=== PATIENT | female | born 1960 | race African-American/Black ===

== ENCOUNTER 2016-12-10 21:30 | Emergency (ER) | payer MEDICAID ==
[~2016-12-10] VITALS: Ht 160 cm; Wt 110.0 kg
[~2016-12-10 21:30] MED LIST: ALBU0.08 NEB; ATOR40TA16 PO; CHLOR50 PO; METO25TA3 PO; NEBUMIS6 XX; PHEN1TAB6 PO; PHEN200C3 PO; PHEN300C3 PO; VENTAER INH
[2016-12-10 21:37] VITALS: BP 129/71; PULSE 68; RESP 16; TEMP 98.2; O2SAT 98
[2016-12-10] MEDS ORDERED: HYDR200T3 PO (21:40)
[2016-12-10] MEDS ORDERED: PRED2.5T PO (21:40)
--- NOTE | 2016-12-10 21:47 | PD ---
HPI Chief Complaint: Seizure Time Seen by Provider: 21:47 Travel History International Travel<30 days: No Contact w/Intl Traveler<30days: No Traveled to known affect area: No History of Present Illness HPI Patient comes in for evaluation after having a "small seizure". Patient reports that patient was dying her hair in the bathroom when he noticed her starting to have a seizure, so he walked her to the bed where she then proceeded to seem to "go out" and start shaking. reports that he used cold rags to apply to his 's face seemed to improve her symptoms after about 5 minutes. Reports she came back to her normal state approximately 2 minutes. denies patient falling or hitting her head. Patient reports she remembers the entire seizure. Denies any pain anywhere. Denies any chest pain, shortness of breath, abdominal pain, fevers, loss or change in bowel or bladder. Patient reports she's taking her seizure medication as prescribed and has not missed any doses. Patient reports last seizure was approximately 3 months ago. PFSH Past Medical History Arthritis: Yes Asthma: Yes Heart Rhythm Problems: No Cancer: No Cardiac Catheterization: No Cardiovascular Problems: Yes (HTN) High Cholesterol: Yes Congestive Heart Failure: No Diabetes: No Diminished Hearing: No Glaucoma: No Hepatitis: No Hiatal Hernia: No Hypertension: Yes Medical other: Yes (EPILEPSY SINCE CHILDHOOD - LAST SEIZURE 2 YEARS AGO) Respiratory: Yes (BRONCHITIS) Immunizations Current: Yes Myocardial Infarction: No Seizures: Yes Thyroid Disease: Yes Tetanus Vaccination: < 5 Years Influenza Vaccination: Yes ?: Not Menopausal: Yes : 3 Para: 2 : 1 Tubal Ligation: Yes Past Surgical History Abdominal Surgery: No Cardiac Surgery: No Coronary Artery Bypass Graft: No Ear Surgery: No Endocrine Surgery: No Eye Surgery: No Genitourinary Surgery: No Gynecologic Surgery: Yes (BILATERAL TUBAL LIGATION) Hysterectomy: Yes (PARTIAL) Oral Surgery: Yes (WISDOM TEETH EXTRACTION) Pacemaker: No Thoracic Surgery: No Other Surgery: Yes (CYST UNDER CHIN LANCED) Social History Alcohol Use: No Tobacco Use: No (never) Substance Use: No Allergies-Medications (Allergen,Severity, Reaction): Coded Allergies: ABDON Inhibitors (Verified Allergy, Intermediate, 12/10/16) Sulfa (Verified Allergy, Intermediate, Nausea/Vomiting, 12/10/16) Aspirin (Verified Adverse Reaction, Intermediate, INDIGESTION, 12/10/16) Codeine (Verified Adverse Reaction, Intermediate, INDIGESTION, 12/10/16) Reported Meds & Prescriptions Reported Meds & Active Scripts Active Phenytoin Extended 200 Mg Cap 400 Mg PO DAILY Take 300mg on odd days and 400mg on even days Phenytoin Extended 300 Mg Cap 300 Mg PO DAILY Take 300mg on odd days and 400mg on even days Phenobarbital 100 Mg Tab 100 Mg PO TID Ventolin Hfa 18 GM Inh (Albuterol Sulfate) 90 Mcg/Act Aer 2 Puff INH Q4-6H PRN Albuterol Neb (Albuterol Sulfate) 2.5 Mg/3 Ml Neb 2.5 Mg NEB Q4HR NEB While awake Metoprolol Tartrate 25 Mg Tab 25 Mg PO BID Atorvastatin (Atorvastatin Calcium) 40 Mg Tab 40 Mg PO HS Chlorthalidone 50 Mg Tab 50 Mg PO DAILY Reported Hydroxychloroquine (Hydroxychloroquine Sulfate) 200 Mg Tab 200 Mg PO BID Takw with food Prednisone 2.5 Mg Tab 2.5 Mg PO DAILY Review of Systems Except as stated in HPI: all other systems reviewed are Neg Physical Exam Narrative GENERAL: Well-developed, overly nourished, in no acute distress, and non-ill appearing. SKIN: Warm and dry. HEAD: Atraumatic. Normocephalic. EYES: Pupils equal and round. EOMI. No scleral icterus. No injection or drainage. ENT: No nasal bleeding or discharge. Mucous membranes pink and moist. NECK: Trachea midline. No JVD. Supple. No nuclear rigidity. CARDIOVASCULAR: Regular rate and rhythm. No murmur appreciated. RESPIRATORY: No accessory muscle use. No respiratory distress. Clear to auscultation. Breath sounds equal bilaterally. GASTROINTESTINAL: Abdomen soft, non-tender, nondistended. Hepatic and splenic margins not palpable. No pulsatile mass. MUSCULOSKELETAL: No obvious deformities. No clubbing. No cyanosis. No edema. Full range of motion. NEUROLOGICAL: Awake and alert. No obvious cranial nerve deficits. Motor grossly within normal limits. Normal speech. PSYCHIATRIC: Appropriate mood and affect; insight and judgment normal. Data Data Last Documented VS Vital Signs Date Time Temp Pulse Resp B/P Pulse Ox O2 Delivery O2 Flow Rate FiO2 12/10/16 23:12 170/80 100 12/10/16 23:06 60 20 Room Air 12/10/16 21:37 98.2 Orders Complete Blood Count With Diff (12/10/16 21:46) Basic Metabolic Panel (Bmp) (12/10/16 21:46) Phenytoin (Dilantin) (12/10/16 21:46) Blood Glucose (12/10/16 21:46) Ecg Monitoring (12/10/16 21:46) Iv Access Insert/Monitor (12/10/16 21:46) Oximetry (12/10/16 21:46) Sodium Chloride 0.9% Flush (Ns Flush) (12/10/16 22:00) Phenytoin (Dilantin) (12/10/16 23:00) Labs Laboratory Tests Test 12/10/16 22:00 White Blood Count 6.8 TH/MM3 Red Blood Count 3.81 MIL/MM3 Hemoglobin 10.7 GM/DL Hematocrit 31.9 % Mean Corpuscular Volume 83.7 FL Mean Corpuscular Hemoglobin 28.0 PG Mean Corpuscular Hemoglobin 33.5 % Concent Red Cell Distribution Width 14.8 % Platelet Count 192 TH/MM3 Mean Platelet Volume 8.5 FL Neutrophils (%) (Auto) 55.5 % Lymphocytes (%) (Auto) 34.7 % Monocytes (%) (Auto) 7.5 % Eosinophils (%) (Auto) 1.8 % Basophils (%) (Auto) 0.5 % Neutrophils # (Auto) 3.8 TH/MM3 Lymphocytes # (Auto) 2.4 TH/MM3 Monocytes # (Auto) 0.5 TH/MM3 Eosinophils # (Auto) 0.1 TH/MM3 Basophils # (Auto) 0.0 TH/MM3 CBC Comment DIFF FINAL Differential Comment Sodium Level 139 MEQ/L Potassium Level 3.6 MEQ/L Chloride Level 104 MEQ/L Carbon Dioxide Level 29.6 MEQ/L Anion Gap 5 MEQ/L Blood Urea Nitrogen 12 MG/DL Creatinine 0.74 MG/DL Estimat Glomerular Filtration 99 ML/MIN Rate Random Glucose 81 MG/DL Calcium Level 8.5 MG/DL Phenytoin (Dilantin) Level 7.7 MCG/ML [facility] Medical Decision Making Medical Screen Exam Complete: Yes Emergency Medical Condition: Yes Differential Diagnosis Electrolyte abnormality, breakthrough seizure, subtherapeutic Dilantin, other Narrative Course The patient presented with seizure. The patient has a known seizure disorder. The patient looks great and has returned to baseline. There is no evidence clinically to suggest meningitis, infection or metabolic etiology. The patient appears well hydrated and nontoxic. Clinical suspicion was discussed with patient. Patient was informed to continue taking seizure medication as prescribed and not miss or skip doses. They were instructed to return as needed or if recurred prior to follow up with neurology. Patient agreed with plan and instructions. The patient was also informed that they may not drive or operated heavy machinery due to the fact that they may have a seizure and cause injury or to themselves or others. They may not drive or operate heavy machinery until cleared by a neurologist. Patient in no obvious distress upon re-evaluation. All pertinent laboratory result(s) discussed with patient/family. Patient was asked if they wanted to speak to my attending, which the patient did not wish to do at this time. Discussed patient with Dr. Sprague, who is in agreement with plan of care and disposition. Any questions/concerns in reference to patient diagnosis/ condition discussed and clarified prior to patient's discharge. Reinforced sheer importance of close follow up with patient's primary physician or primary care clinic. Instructed patient to return to ED immediately, if symptoms return/ worsen. Pt showed understanding of above instructions. Further instructions and recommendations were detailed in discharge paperwork. Pt ambulated without difficulty out of ED at discharge. Diagnosis Primary Impression: Subtherapeutic phenytoin level Additional Impression: Breakthrough seizure Patient Instructions: General Instructions, Recurrent Seizures in Adults (DC) Additional Instructions: Follow-up with your primary care physician and/or neurologist this week. Do not drive any vehicle or operate heavy machinery until cleared by your neurologist. Return to the emergency department if symptoms get worse. Disposition: 01 DISCHARGE HOME Condition: Stable Mack Britton Dec 10, 2016 21:47
[2016-12-10] MEDS ORDERED: SODIUM CHLORIDE 0.9% FLUSH 5 ML FLUSH IVF PRN (22:00)
[2016-12-10 22:21] LABS: AUTOMATED NEUTROPHIL # 3.8 TH/MM3 (1.8-7.7); BASOPHIL % 0.5 % (0.0-2.0); EOSINOPHIL # 0.1 TH/MM3 (0-0.4); EOSINOPHIL % 1.8 % (0.0-4.0); HEMATOCRIT 31.9 % (35.0-46.0); HEMO FLAGS DIFF FINAL; LYMPH % 34.7 % (9.0-44.0); LYMPHOCYTE # 2.4 TH/MM3 (1.0-4.8); MEAN CELL VOLUME 83.7 FL (80.0-100.0); MEAN CORPUSCULAR HGB CONC 33.5 % (32.0-36.0); MONO % 7.5 % (0.0-8.0); NEUT % 55.5 % (16.0-70.0); PLATELET COUNT 192 TH/MM3 (150-450); RED BLOOD COUNT 3.81 MIL/MM3 (4.00-5.30); RED CELL DISTRIBUTION WIDTH 14.8 % (11.6-17.2); WHITE BLOOD COUNT 6.8 TH/MM3 (4.0-11.0)
[2016-12-10 22:58] LABS: BICARBONATE 29.6 MEQ/L (21.0-32.0); POTASSIUM 3.6 MEQ/L (3.5-5.1)
[2016-12-10] MEDS ORDERED: PHENYTOIN SODIUM 100 MG CAP PO ONE (23:00)
[2016-12-10 23:06] VITALS: BP 170/80; PULSE 60; RESP 20; O2SAT 100
[2016-12-10 23:12] VITALS: BP 170/80
[2016-12-25] MEDS ORDERED: ATOR1TAB18 PO (09:59)
[2016-12-25] MEDS ORDERED: CHOL20005 PO (09:59)
[2017-04-28] MEDS ORDERED: OMEP40CA2 PO (11:13)
[2017-04-28] MEDS ORDERED: CHOL5000 PO (11:14)
[2017-04-28] MEDS ORDERED: KLOR25TA2 PO (11:20)
== END 2016-12-10 23:21 | disposition home or self-care (01) ==
LOC: NEPC 21:30
DX: G40.909 Epilepsy, unspecified, not intractable, without status epilepticus (principal); G40.89 Other seizures; E78.00 Pure hypercholesterolemia, unspecified; I10 Essential (primary) hypertension; E07.9 Disorder of thyroid, unspecified; Z79.899 Other long term (current) drug therapy; Z87.09 Personal history of other diseases of the respiratory system; Z86.69 Personal history of other diseases of the nervous system and sense organs; Z87.39 Personal history of other diseases of the musculoskeletal system and connective tissue
CPT/HCPCS: 80048; 80185; 85025; 99284

== ENCOUNTER 2017-01-19 07:40 | Emergency (ER) | payer MEDICAID ==
[~2017-01-19] VITALS: Ht 162.6 cm; Wt 110.0 kg
[~2017-01-19 07:40] MED LIST changes: +ATOR1TAB18 PO; -ATOR40TA16 PO; +CHOL20005 PO; +HYDR200T3 PO; -NEBUMIS6 XX; +PRED2.5T PO
[2017-01-19 07:42] VITALS: BP 169/89; PULSE 58; RESP 17; TEMP 97.8; O2SAT 100
[2017-01-19] MEDS ORDERED: PHEN1TAB6 PO (07:57)
[2017-01-19] MEDS ORDERED: POTA10CA PO (07:58)
--- NOTE | 2017-01-19 08:13 | PD ---
HPI Chief Complaint: ENT Complaint Time Seen by Provider: 08:07 Travel History International Travel<30 days: No Contact w/Intl Traveler<30days: No Traveled to known affect area: No History of Present Illness HPI 56-year-old Afro-[place] female presents the emergency department with ongoing swelling in her posterior pharynx, and swelling and tenderness of the uvula. Patient is being followed by an ear nose and throat doctor, and has been evaluated for sleep apnea. Patient states she does not have sleep apnea according to the chest that they did. Patient denies any recent exposures. Patient is known to snore quite a lot according to her . She denies heartburn but does wake up with pain and burning in the throat in the morning. Patient denies fever, chills, or other symptoms. She does state nasal congestion and occasional headache. She denies seasonal allergies this time of year. Patient is allergic to abdon inhibitors, aspirin, codeine, sulfa. PFSH Past Medical History Arthritis: Yes Asthma: Yes Heart Rhythm Problems: No Cancer: No Cardiac Catheterization: No Cardiovascular Problems: Yes (HTN) High Cholesterol: Yes Congestive Heart Failure: No Diabetes: No Diminished Hearing: No Glaucoma: No Hepatitis: No Hiatal Hernia: No Hypertension: Yes Respiratory: Yes (BRONCHITIS) Immunizations Current: Yes Myocardial Infarction: No Seizures: Yes Thyroid Disease: Yes ?: Not Menopausal: Yes : 3 Para: 2 : 1 Tubal Ligation: Yes Past Surgical History Abdominal Surgery: No Cardiac Surgery: No Coronary Artery Bypass Graft: No Ear Surgery: No Endocrine Surgery: No Eye Surgery: No Genitourinary Surgery: No Gynecologic Surgery: Yes (BILATERAL TUBAL LIGATION) Hysterectomy: Yes (PARTIAL) Oral Surgery: Yes (WISDOM TEETH EXTRACTION) Pacemaker: No Thoracic Surgery: No Other Surgery: Yes (CYST UNDER CHIN LANCED) Social History Alcohol Use: No Tobacco Use: No (never) Substance Use: No Allergies-Medications (Allergen,Severity, Reaction): Coded Allergies: ABDON Inhibitors (Verified Allergy, Intermediate, 01/19/17) Sulfa (Verified Allergy, Intermediate, Nausea/Vomiting, 01/19/17) Aspirin (Verified Adverse Reaction, Intermediate, INDIGESTION, 01/19/17) Codeine (Verified Adverse Reaction, Intermediate, INDIGESTION, 01/19/17) Reported Meds & Prescriptions Reported Meds & Active Scripts Active Atorvastatin (Atorvastatin Calcium) 80 Mg Tab 80 Mg PO HS Phenytoin Extended 300 Mg Cap 300 Mg PO DAILY Take 300mg on odd days and 400mg on even days Ventolin Hfa 18 GM Inh (Albuterol Sulfate) 90 Mcg/Act Aer 2 Puff INH Q4-6H PRN Albuterol Neb (Albuterol Sulfate) 2.5 Mg/3 Ml Neb 2.5 Mg NEB Q4HR NEB While awake Metoprolol Tartrate 25 Mg Tab 25 Mg PO BID Reported Potassium Chloride ER (Potassium Chloride) 10 Meq Cap 10 Meq PO DAILY Phenobarbital 100 Mg Tab 100 Mg PO TID Hydroxychloroquine (Hydroxychloroquine Sulfate) 200 Mg Tab 200 Mg PO BID Takw with food Prednisone 2.5 Mg Tab 2.5 Mg PO DAILY Review of Systems Except as stated in HPI: all other systems reviewed are Neg General / Constitutional: No: Fever Eyes: No: Visual changes HENT: Positive: Sore Throat, Congestion, No: Headaches, Rhinitis, Rhinorrhea, Neck Stiffness, Neck Pain, Ear Discharge, Earache Cardiovascular: No: Chest Pain or Discomfort Respiratory: No: Shortness of Breath Gastrointestinal: No: Abdominal Pain Genitourinary: No: Dysuria Musculoskeletal: No: Pain Skin: No Rash Neurologic: No: Weakness Psychiatric: No: Depression Endocrine: No: Polydipsia Hematologic/Lymphatic: No: Easy Bruising Physical Exam Narrative GENERAL: Obese patient in no acute distress. Patient is speaking full sentences. SKIN: Warm and dry. HEAD: Atraumatic. Normocephalic. EYES: Pupils equal and round. No scleral icterus. No injection or drainage. ENT: No nasal bleeding or discharge. Mucous membranes pink and moist. Patient has a very narrow pharynx, and the uvula appears slightly swollen and injected, but no other significant findings are noted. TMs are clear bilaterally. No sinus tenderness with palpation. NECK: Trachea midline. No JVD. Supple and nontender. CARDIOVASCULAR: Regular rate and rhythm. RESPIRATORY: No accessory muscle use. Clear to auscultation. Breath sounds equal bilaterally. GASTROINTESTINAL: Abdomen soft, non-tender, nondistended. Hepatic and splenic margins not palpable. MUSCULOSKELETAL: Extremities without clubbing, cyanosis, or edema. No obvious deformities. NEUROLOGICAL: Awake and alert. No obvious cranial nerve deficits. Motor grossly within normal limits. Five out of 5 muscle strength in the arms and legs. Normal speech. PSYCHIATRIC: Appropriate mood and affect; insight and judgment normal. Data Data Last Documented VS Vital Signs Date Time Temp Pulse Resp B/P Pulse Ox O2 Delivery O2 Flow Rate FiO2 01/19/17 07:42 97.8 58 17 169/89 100 MDM Medical Decision Making Medical Screen Exam Complete: Yes Emergency Medical Condition: Yes Differential Diagnosis Inflamed uvula. Silent reflux. Sinus congestion. Postnasal drip. Narrative Course Patient is medically stable at time of exam. Patient will be given a course of amoxicillin 400 per 5 mL suspension 2 teaspoons twice a day 10 days. Patient started on Flonase nasal spray 2 sprays each nostril. Patient is given Orapred 15 per 5 mL suspension she is to take 2 teaspoons twice a day for 5 days. Patient started on omeprazole 40 mg daily #30. Recommend close follow with her in nose and throat physician. Patient may return to emergency Department with worsening symptoms as needed. Diagnosis Primary Impression: Pharyngitis, chronic Referrals: Ear / Nose / Throat Specialist Patient Instructions: General Instructions Additional Instructions: Patient will be given a course of amoxicillin 400 per 5 mL suspension 2 teaspoons twice a day 10 days. Patient started on Flonase nasal spray 2 sprays each nostril. Patient is given Orapred 15 per 5 mL suspension she is to take 2 teaspoons twice a day for 5 days. Patient started on omeprazole 40 mg daily #30. Recommend close follow with her in nose and throat physician. Patient may return to emergency Department with worsening symptoms as needed. Med/Other Pt SpecificInfo: Prescription(s) given Disposition: 01 DISCHARGE HOME Condition: Stable Peterson Virk Jan 19, 2017 08:13
[2017-01-19] MEDS ORDERED: FLUT1SPR5 EACH NARE (08:15)
[2017-01-19] MEDS ORDERED: PRED1TAB47 SL (08:15)
[2017-01-19] MEDS ORDERED: OMEP40CA2 PO (08:15)
[2017-01-19] MEDS ORDERED: AMOX400S3 PO (08:15)
[2017-04-28] MEDS ORDERED: OMEP40CA2 PO (11:13)
[2017-04-28] MEDS ORDERED: CHOL5000 PO (11:14)
[2017-04-28] MEDS ORDERED: KLOR25TA2 PO (11:20)
== END 2017-01-19 08:51 | disposition home or self-care (01) ==
LOC: NEPB 07:40
DX: J31.2 Chronic pharyngitis (principal); J45.909 Unspecified asthma, uncomplicated; I10 Essential (primary) hypertension; E78.00 Pure hypercholesterolemia, unspecified; E07.9 Disorder of thyroid, unspecified
CPT/HCPCS: 99282

== ENCOUNTER 2017-03-30 20:37 | Emergency (ER) | payer MEDICAID ==
[~2017-03-30] VITALS: Ht 132.1 cm; Wt 105.0 kg
[~2017-03-30 20:37] MED LIST changes: +AMOX400S3 PO; -CHLOR50 PO; -CHOL20005 PO; +FLUT1SPR5 EACH NARE; +OMEP40CA2 PO; -PHEN200C3 PO; +POTA10CA PO; +PRED1TAB47 SL
[2017-03-30 20:40] VITALS: BP 144/60; PULSE 63; RESP 16; TEMP 98.4; O2SAT 98
[2017-03-30 21:20] VITALS: BP 155/71; PULSE 59; RESP 14; O2SAT 97
--- NOTE | 2017-03-30 21:36 | PD ---
HPI Chief Complaint: Seizure Time Seen by Provider: 21:33 Travel History International Travel<30 days: No Contact w/Intl Traveler<30days: No Traveled to known affect area: No History of Present Illness HPI 56-year-old female that presents to the ED for evaluation of altered mental status is status post seizure. Per patient she has a history of seizures and she takes 2 medications for it. Per patient she is compliant with them. Per patient she's had seizures before. Per patient and her family was concerned because she had a seizure in front of them. She was sleeping and this woke her up from her sleep. She denies any other injuries. She has hit her head or losing consciousness. Per patient she does have some discomfort to her abdomen and feeling weak. Let him that she feels fine. She does have some chronic arthritic pain on her feet for which he takes medications. She is allergies to aspirin, codeine, sulfa, Cameron inhibitors. No other medical issues at this time. Denies any cuts. No urinary or bowel movement issues. PFSH Past Medical History Arthritis: Yes Asthma: Yes Heart Rhythm Problems: No Cancer: No Cardiac Catheterization: No Cardiovascular Problems: Yes (HTN) High Cholesterol: Yes Congestive Heart Failure: No Diabetes: No Diminished Hearing: No Glaucoma: No Hepatitis: No Hiatal Hernia: No Hypertension: Yes Medical other: Yes (EPILEPSY SINCE CHILDHOOD ) Respiratory: Yes (BRONCHITIS) Immunizations Current: Yes Myocardial Infarction: No Seizures: Yes Thyroid Disease: Yes Tetanus Vaccination: > 5 Years ?: Not Menopausal: Yes : 3 Para: 2 : 1 Tubal Ligation: Yes Past Surgical History Abdominal Surgery: No Cardiac Surgery: No Coronary Artery Bypass Graft: No Ear Surgery: No Endocrine Surgery: No Eye Surgery: No Genitourinary Surgery: No Gynecologic Surgery: Yes (BILATERAL TUBAL LIGATION) Hysterectomy: Yes (PARTIAL) Oral Surgery: Yes (WISDOM TEETH EXTRACTION) Pacemaker: No Thoracic Surgery: No Other Surgery: Yes (CYST UNDER CHIN LANCED) Social History Alcohol Use: No Tobacco Use: No (never) Substance Use: No Allergies-Medications (Allergen,Severity, Reaction): Coded Allergies: CAMERON Inhibitors (Verified Allergy, Intermediate, 03/30/17) Sulfa (Verified Allergy, Intermediate, Nausea/Vomiting, 03/30/17) Aspirin (Verified Adverse Reaction, Intermediate, INDIGESTION, 5/22/17) Codeine (Verified Adverse Reaction, Intermediate, INDIGESTION, 03/30/17) Reported Meds & Prescriptions Reported Meds & Active Scripts Active Omeprazole 40 Mg Cap 40 Mg PO DAILY Flonase Nasal [place] (Fluticasone Nasal [place]) 50 Mcg/Act [place] 50 Mcg EACH NARE BID Orapred Odt (Prednisolone Odt) 15 Mg Tab 15 Mg SL BID 5 Days Atorvastatin (Atorvastatin Calcium) 80 Mg Tab 80 Mg PO HS Phenytoin Extended 300 Mg Cap 300 Mg PO DAILY Take 300mg on odd days and 400mg on even days Ventolin Hfa 18 GM Inh (Albuterol Sulfate) 90 Mcg/Act Aer 2 Puff INH Q4-6H PRN Albuterol Neb (Albuterol Sulfate) 2.5 Mg/3 Ml Neb 2.5 Mg NEB Q4HR NEB While awake Metoprolol Tartrate 25 Mg Tab 25 Mg PO BID Reported Phenobarbital 100 Mg Tab 100 Mg PO TID Hydroxychloroquine (Hydroxychloroquine Sulfate) 200 Mg Tab 200 Mg PO BID Takw with food Prednisone 2.5 Mg Tab 2.5 Mg PO DAILY Review of Systems Except as stated in HPI: all other systems reviewed are Neg Physical Exam Narrative GENERAL: SKIN: Warm and dry. HEAD: Atraumatic. Normocephalic. EYES: Pupils equal and round. No scleral icterus. No injection or drainage. ENT: No nasal bleeding or discharge. Mucous membranes pink and moist. Tongue is midline. No uvula deviation. NECK: Trachea midline. No JVD. CARDIOVASCULAR: Regular rate and rhythm. No murmurs, S3, S4. RESPIRATORY: No accessory muscle use. Clear to auscultation. Breath sounds equal bilaterally. GASTROINTESTINAL: Abdomen soft, non-tender, nondistended. Hepatic and splenic margins not palpable. MUSCULOSKELETAL: Extremities without clubbing, cyanosis, or edema. No obvious deformities. Full range of motion of the upper and lower extremities bilaterally. 2+ pulses bilaterally. No lumbar, thoracic, cervical spine tenderness to palpation. NEUROLOGICAL: Awake and alert. No obvious cranial nerve deficits. Motor grossly within normal limits. Five out of 5 muscle strength in the arms and legs. Normal speech. PSYCHIATRIC: Appropriate mood and affect; insight and judgment normal. Data Data Last Documented VS Vital Signs Date Time Temp Pulse Resp B/P Pulse Ox O2 Delivery O2 Flow Rate FiO2 03/30/17 21:20 59 14 155/71 97 Room Air 03/30/17 20:40 98.4 Orders Pentobaribital (03/30/17 21:12) Phenytoin (Dilantin) (03/30/17 21:12) Complete Blood Count With Diff (03/30/17 21:12) Basic Metabolic Panel (Bmp) (03/30/17 21:12) Urinalysis - C+S If Indicated (03/30/17 21:12) Magnesium (Mg) (03/30/17 21:12) Iv Access Insert/Monitor (03/30/17 21:12) Ecg Monitoring (03/30/17 21:12) Oximetry (03/30/17 21:12) Potassium Chloride (Kcl) (03/30/17 22:15) Labs Laboratory Tests Test 03/30/17 03/30/17 21:35 22:20 White Blood Count 5.9 TH/MM3 Red Blood Count 4.14 MIL/MM3 Hemoglobin 11.1 GM/DL Hematocrit 34.1 % Mean Corpuscular Volume 82.4 FL Mean Corpuscular Hemoglobin 26.8 PG Mean Corpuscular Hemoglobin 32.6 % Concent Red Cell Distribution Width 14.0 % Platelet Count 186 TH/MM3 Mean Platelet Volume 8.0 FL Neutrophils (%) (Auto) 55.1 % Lymphocytes (%) (Auto) 34.2 % Monocytes (%) (Auto) 7.8 % Eosinophils (%) (Auto) 2.2 % Basophils (%) (Auto) 0.7 % Neutrophils # (Auto) 3.2 TH/MM3 Lymphocytes # (Auto) 2.0 TH/MM3 Monocytes # (Auto) 0.5 TH/MM3 Eosinophils # (Auto) 0.1 TH/MM3 Basophils # (Auto) 0.0 TH/MM3 CBC Comment DIFF FINAL Differential Comment Sodium Level 136 MEQ/L Potassium Level 2.8 MEQ/L Chloride Level 97 MEQ/L Carbon Dioxide Level 30.7 MEQ/L Anion Gap 8 MEQ/L Blood Urea Nitrogen 13 MG/DL Creatinine 0.80 MG/DL Estimat Glomerular Filtration 90 ML/MIN Rate Random Glucose 95 MG/DL Calcium Level 8.9 MG/DL Magnesium Level 2.2 MG/DL Phenytoin (Dilantin) Level 11.0 MCG/ML Urine Color YELLOW Urine Turbidity CLEAR Urine pH 6.5 Urine Specific [place] 1.013 Urine Protein NEG mg/dL Urine Glucose (UA) NEG mg/dL Urine Ketones NEG mg/dL Urine Occult Blood NEG Urine Nitrite NEG Urine Bilirubin NEG Urine Urobilinogen LESS THAN 2.0 MG/DL Urine Leukocyte Esterase NEG Urine RBC LESS THAN 1 /hpf Urine WBC 1 /hpf Urine Squamous Epithelial 2 /hpf Cells Urine Hyaline Casts 1 /lpf Microscopic Urinalysis Comment CULT NOT INDICATED MDM Medical Decision Making Medical Screen Exam Complete: Yes Emergency Medical Condition: Yes Medical Record Reviewed: Yes Interpretation(s) CBC & BMP Diagram 03/30/17 21:35 UA negative Differential Diagnosis Seizure versus breakthrough seizure versus subtherapeutic seizure medication versus normal exam versus altered mental status Narrative Course 56-year-old female that presents to the ED for evaluation of possible seizure. Patient was properly examined and was found to have signs and symptoms consistent appears to be likely seizure. Labs will be drawn. Labs showed hypokalemia. Potassium was replaced. Other labs still pending. Case signed out to my attending. Diagnosis Primary Impression: Breakthrough seizure Additional Impression: Hypokalemia Eron Tolbert March 30, 2017 21:36
[2017-03-30 21:43] LABS: AUTOMATED NEUTROPHIL # 3.2 TH/MM3 (1.8-7.7); BASOPHIL % 0.7 % (0.0-2.0); EOSINOPHIL # 0.1 TH/MM3 (0-0.4); EOSINOPHIL % 2.2 % (0.0-4.0); HEMATOCRIT 34.1 % (35.0-46.0); HEMO FLAGS DIFF FINAL; LYMPH % 34.2 % (9.0-44.0); MEAN CELL VOLUME 82.4 FL (80.0-100.0); MEAN CORPUSCULAR HEMOGLOBIN 26.8 PG (27.0-34.0); MEAN CORPUSCULAR HGB CONC 32.6 % (32.0-36.0); MONO % 7.8 % (0.0-8.0); NEUT % 55.1 % (16.0-70.0); PLATELET COUNT 186 TH/MM3 (150-450); RED BLOOD COUNT 4.14 MIL/MM3 (4.00-5.30); WHITE BLOOD COUNT 5.9 TH/MM3 (4.0-11.0)
[2017-03-30 22:03] LABS: BICARBONATE 30.7 MEQ/L (21.0-32.0); MAGNESIUM 2.2 MG/DL (1.5-2.5)
[2017-03-30 22:09] LABS: POTASSIUM 2.8 MEQ/L (3.5-5.1)
[2017-03-30] MEDS ORDERED: POTASSIUM CHLORIDE 10 MEQ CONTROLLED RELEASE TAB PO ONE (22:15)
[2017-03-30 22:32] LABS: BLOOD, URINE NEG (NEG); GLUCOSE,URINE NEG (NEG); HYALINE CAST, URINE 1 /lpf (RARE); KETONE, URINE NEG (NEG); NITRITE,URINE NEG (NEG); PH, URINE 6.5 (5.0-8.5); SQUAMOUS EPITHELIAL CELL URINE 2 /hpf (0-5); URINE COLOR YELLOW (YELLW/STRAW)
[2017-03-30 22:33] LABS: COMMENT (UR) CULT NOT INDICATED; CULTURE IF INDICATED CULT NOT INDICATED
--- NOTE | 2017-03-31 00:47 | PD ---
Physical Exam Date Seen by Provider: March 31, 2017 Data Data Last Documented VS Vital Signs Date Time Temp Pulse Resp B/P Pulse Ox O2 Delivery O2 Flow Rate FiO2 03/30/17 21:20 59 14 155/71 97 Room Air 03/30/17 20:40 98.4 Orders Pentobaribital (03/30/17 21:12) Phenytoin (Dilantin) (03/30/17 21:12) Complete Blood Count With Diff (03/30/17 21:12) Basic Metabolic Panel (Bmp) (03/30/17 21:12) Urinalysis - C+S If Indicated (03/30/17 21:12) Magnesium (Mg) (03/30/17 21:12) Iv Access Insert/Monitor (03/30/17 21:12) Ecg Monitoring (03/30/17 21:12) Oximetry (03/30/17 21:12) Potassium Chloride (Kcl) (03/30/17 22:15) Labs Laboratory Tests Test 03/30/17 03/30/17 21:35 22:20 White Blood Count 5.9 TH/MM3 Red Blood Count 4.14 MIL/MM3 Hemoglobin 11.1 GM/DL Hematocrit 34.1 % Mean Corpuscular Volume 82.4 FL Mean Corpuscular Hemoglobin 26.8 PG Mean Corpuscular Hemoglobin 32.6 % Concent Red Cell Distribution Width 14.0 % Platelet Count 186 TH/MM3 Mean Platelet Volume 8.0 FL Neutrophils (%) (Auto) 55.1 % Lymphocytes (%) (Auto) 34.2 % Monocytes (%) (Auto) 7.8 % Eosinophils (%) (Auto) 2.2 % Basophils (%) (Auto) 0.7 % Neutrophils # (Auto) 3.2 TH/MM3 Lymphocytes # (Auto) 2.0 TH/MM3 Monocytes # (Auto) 0.5 TH/MM3 Eosinophils # (Auto) 0.1 TH/MM3 Basophils # (Auto) 0.0 TH/MM3 CBC Comment DIFF FINAL Differential Comment Sodium Level 136 MEQ/L Potassium Level 2.8 MEQ/L Chloride Level 97 MEQ/L Carbon Dioxide Level 30.7 MEQ/L Anion Gap 8 MEQ/L Blood Urea Nitrogen 13 MG/DL Creatinine 0.80 MG/DL Estimat Glomerular Filtration 90 ML/MIN Rate Random Glucose 95 MG/DL Calcium Level 8.9 MG/DL Magnesium Level 2.2 MG/DL Phenytoin (Dilantin) Level 11.0 MCG/ML Urine Color YELLOW Urine Turbidity CLEAR Urine pH 6.5 Urine Specific [place] 1.013 Urine Protein NEG mg/dL Urine Glucose (UA) NEG mg/dL Urine Ketones NEG mg/dL Urine Occult Blood NEG Urine Nitrite NEG Urine Bilirubin NEG Urine Urobilinogen LESS THAN 2.0 MG/DL Urine Leukocyte Esterase NEG Urine RBC LESS THAN 1 /hpf Urine WBC 1 /hpf Urine Squamous Epithelial 2 /hpf Cells Urine Hyaline Casts 1 /lpf Microscopic Urinalysis Comment CULT NOT INDICATED MDM Medical Record Reviewed: Yes Supervised Visit with MARY: Yes Interpretation(s) Vital Signs Date Time Temp Pulse Resp B/P Pulse Ox O2 Delivery O2 Flow Rate FiO2 03/30/17 21:20 59 14 155/71 97 Room Air 03/30/17 20:40 98.4 63 16 144/60 98 Room Air Laboratory Tests Test 03/30/17 03/30/17 21:35 22:20 White Blood Count 5.9 TH/MM3 (4.0-11.0) Red Blood Count 4.14 MIL/MM3 (4.00-5.30) Hemoglobin 11.1 GM/DL (11.6-15.3) Hematocrit 34.1 % (35.0-46.0) Mean Corpuscular Volume 82.4 FL (80.0-100.0) Mean Corpuscular Hemoglobin 26.8 PG (27.0-34.0) Mean Corpuscular Hemoglobin 32.6 % Concent (32.0-36.0) Red Cell Distribution Width 14.0 % (11.6-17.2) Platelet Count 186 TH/MM3 (150-450) Mean Platelet Volume 8.0 FL (7.0-11.0) Neutrophils (%) (Auto) 55.1 % (16.0-70.0) Lymphocytes (%) (Auto) 34.2 % (9.0-44.0) Monocytes (%) (Auto) 7.8 % (0.0-8.0) Eosinophils (%) (Auto) 2.2 % (0.0-4.0) Basophils (%) (Auto) 0.7 % (0.0-2.0) Neutrophils # (Auto) 3.2 TH/MM3 (1.8-7.7) Lymphocytes # (Auto) 2.0 TH/MM3 (1.0-4.8) Monocytes # (Auto) 0.5 TH/MM3 (0-0.9) Eosinophils # (Auto) 0.1 TH/MM3 (0-0.4) Basophils # (Auto) 0.0 TH/MM3 (0-0.2) CBC Comment DIFF FINAL Differential Comment Sodium Level 136 MEQ/L (136-145) Potassium Level 2.8 MEQ/L (3.5-5.1) Chloride Level 97 MEQ/L (98-107) Carbon Dioxide Level 30.7 MEQ/L (21.0-32.0) Anion Gap 8 MEQ/L (5-15) Blood Urea Nitrogen 13 MG/DL (7-18) Creatinine 0.80 MG/DL (0.50-1.00) Estimat Glomerular Filtration 90 ML/MIN (>89) Rate Random Glucose 95 MG/DL (74-106) Calcium Level 8.9 MG/DL (8.5-10.1) Magnesium Level 2.2 MG/DL (1.5-2.5) Phenytoin (Dilantin) Level 11.0 MCG/ML (10.0-20.0) Urine Color YELLOW (YELLW/STRAW) Urine Turbidity CLEAR (CLEAR) Urine pH 6.5 (5.0-8.5) Urine Specific [place] 1.013 (1.002-1.035) Urine Protein NEG mg/dL (NEG-TRACE) Urine Glucose (UA) NEG mg/dL (NEG) Urine Ketones NEG mg/dL (NEG) Urine Occult Blood NEG (NEG) Urine Nitrite NEG (NEG) Urine Bilirubin NEG (NEG) Urine Urobilinogen LESS THAN 2.0 MG/DL (LESS THAN 2.0) Urine Leukocyte Esterase NEG (NEG) Urine RBC LESS THAN 1 /hpf (0-3) Urine WBC 1 /hpf (0-5) Urine Squamous Epithelial 2 /hpf (0-5) Cells Urine Hyaline Casts 1 /lpf (RARE) Microscopic Urinalysis Comment CULT NOT INDICATED Narrative Course I, Dr. Butler, have reviewed the advance practice practitioner's documentation and am in agreement, met with the patient face to face, made the diagnosis, and the medical decision making was done by me. *My assessment and Findings: Seizure disorder Patient is a 56-year-old female with history of seizures, presented to the ER after she had a seizure today. Patient was monitored for 4 hours while in the ER. Patient back to her baseline as per her . Patient will follow up with her neurologist and will follow up with pending levels for her seizure medications drawn today. Signs and symptoms of when to return to ER was reviewed with patient in detail. Vital Signs Date Time Temp Pulse Resp B/P Pulse Ox O2 Delivery O2 Flow Rate FiO2 03/30/17 21:20 59 14 155/71 97 Room Air 03/30/17 20:40 98.4 63 16 144/60 98 Room Air Laboratory Tests Test 03/30/17 03/30/17 21:35 22:20 White Blood Count 5.9 TH/MM3 (4.0-11.0) Red Blood Count 4.14 MIL/MM3 (4.00-5.30) Hemoglobin 11.1 GM/DL (11.6-15.3) Hematocrit 34.1 % (35.0-46.0) Mean Corpuscular Volume 82.4 FL (80.0-100.0) Mean Corpuscular Hemoglobin 26.8 PG (27.0-34.0) Mean Corpuscular Hemoglobin 32.6 % Concent (32.0-36.0) Red Cell Distribution Width 14.0 % (11.6-17.2) Platelet Count 186 TH/MM3 (150-450) Mean Platelet Volume 8.0 FL (7.0-11.0) Neutrophils (%) (Auto) 55.1 % (16.0-70.0) Lymphocytes (%) (Auto) 34.2 % (9.0-44.0) Monocytes (%) (Auto) 7.8 % (0.0-8.0) Eosinophils (%) (Auto) 2.2 % (0.0-4.0) Basophils (%) (Auto) 0.7 % (0.0-2.0) Neutrophils # (Auto) 3.2 TH/MM3 (1.8-7.7) Lymphocytes # (Auto) 2.0 TH/MM3 (1.0-4.8) Monocytes # (Auto) 0.5 TH/MM3 (0-0.9) Eosinophils # (Auto) 0.1 TH/MM3 (0-0.4) Basophils # (Auto) 0.0 TH/MM3 (0-0.2) CBC Comment DIFF FINAL Differential Comment Sodium Level 136 MEQ/L (136-145) Potassium Level 2.8 MEQ/L (3.5-5.1) Chloride Level 97 MEQ/L (98-107) Carbon Dioxide Level 30.7 MEQ/L (21.0-32.0) Anion Gap 8 MEQ/L (5-15) Blood Urea Nitrogen 13 MG/DL (7-18) Creatinine 0.80 MG/DL (0.50-1.00) Estimat Glomerular Filtration 90 ML/MIN (>89) Rate Random Glucose 95 MG/DL (74-106) Calcium Level 8.9 MG/DL (8.5-10.1) Magnesium Level 2.2 MG/DL (1.5-2.5) Phenytoin (Dilantin) Level 11.0 MCG/ML (10.0-20.0) Urine Color YELLOW (YELLW/STRAW) Urine Turbidity CLEAR (CLEAR) Urine pH 6.5 (5.0-8.5) Urine Specific [place] 1.013 (1.002-1.035) Urine Protein NEG mg/dL (NEG-TRACE) Urine Glucose (UA) NEG mg/dL (NEG) Urine Ketones NEG mg/dL (NEG) Urine Occult Blood NEG (NEG) Urine Nitrite NEG (NEG) Urine Bilirubin NEG (NEG) Urine Urobilinogen LESS THAN 2.0 MG/DL (LESS THAN 2.0) Urine Leukocyte Esterase NEG (NEG) Urine RBC LESS THAN 1 /hpf (0-3) Urine WBC 1 /hpf (0-5) Urine Squamous Epithelial 2 /hpf (0-5) Cells Urine Hyaline Casts 1 /lpf (RARE) Microscopic Urinalysis Comment CULT NOT INDICATED Diagnosis Primary Impression: Breakthrough seizure Additional Impression: Hypokalemia Patient Instructions: General Instructions Additional Instruction: Please follow-up with your neurologist as soon as possible Please take your prescriptions as prescribed Please return to emergency room as needed Disposition: 01 DISCHARGE HOME Condition: Stable Shantal Butler DO March 31, 2017 00:46
[2017-04-28] MEDS ORDERED: OMEP40CA2 PO (11:13)
[2017-04-28] MEDS ORDERED: CHOL5000 PO (11:14)
[2017-04-28] MEDS ORDERED: KLOR25TA2 PO (11:20)
== END 2017-03-31 01:02 | disposition home or self-care (01) ==
LOC: NEPE 20:37
DX: G40.909 Epilepsy, unspecified, not intractable, without status epilepticus (principal); E87.6 Hypokalemia; I10 Essential (primary) hypertension
CPT/HCPCS: 80048; 80185; 80345; 81001; 83735; 85025; 99283; G0480

== ENCOUNTER 2017-08-26 16:42 | Emergency (ER) | payer MEDICAID ==
[~2017-08-26] VITALS: Ht 162.6 cm; Wt 110.0 kg
[~2017-08-26 16:42] MED LIST changes: -AMOX400S3 PO; +CHLO25TA2 PO; +CHOL5000 PO; -POTA10CA PO; +POTA10TA15 PO
[2017-08-26 16:43] VITALS: BP 181/85; PULSE 84; RESP 18; TEMP 99.1; O2SAT 98
[2017-08-26 19:49] VITALS: BP 204/93; PULSE 66; RESP 22; O2SAT 100
[2017-08-26] MEDS ORDERED: METOPROLOL TARTRATE 5 MG/5 ML VIAL IV PUSH ONE (20:00)
[2017-08-26] MEDS ORDERED: SODIUM CHLORID 0.9% 500 ML INJ 500 ML IV ONE (20:00)
--- NOTE | 2017-08-26 20:04 | PD ---
HPI Chief Complaint: Seizure Time Seen by Provider: 19:46 Travel History International Travel<30 days: No Contact w/Intl Traveler<30days: No Traveled to known affect area: No History of Present Illness HPI This is a 57 year old female with history of hypertension, seizure disorder, asthma, bronchitis, upper lipidemia, presents after having what sounds like a syncopal episode. The patient states she was in the kitchen cooking dinner. She reports it was extremely hot in the kitchen. She remembers waking up on the floor with several people looking at her. There is no reported incontinence. There was no reported seizure activity. Patient reports pain in her right hip, right thigh, right knee and and right tib-fib. She also reports mild headache. She states her last seizure was 2 years ago. She reports taking phenobarbital and phenytoin. There are no other complaints time my examination. PFSH Past Medical History Arthritis: Yes Asthma: Yes Heart Rhythm Problems: No Cancer: No Cardiac Catheterization: No Cardiovascular Problems: Yes (HTN) High Cholesterol: Yes Congestive Heart Failure: No Diabetes: No Diminished Hearing: No Glaucoma: No Hepatitis: No Hiatal Hernia: No Hypertension: Yes Medical other: Yes (EPILEPSY SINCE CHILDHOOD - LAST SEIZURE 2 YEARS AGO) Respiratory: Yes (BRONCHITIS) Immunizations Current: Yes Myocardial Infarction: No Seizures: Yes Thyroid Disease: Yes Tetanus Vaccination: > 5 Years ?: Not Menopausal: Yes : 3 Para: 2 : 1 Tubal Ligation: Yes Past Surgical History Abdominal Surgery: No Cardiac Surgery: No Coronary Artery Bypass Graft: No Ear Surgery: No Endocrine Surgery: No Eye Surgery: No Genitourinary Surgery: No Gynecologic Surgery: Yes (BILATERAL TUBAL LIGATION, ONE OVARY REMOVED) Hysterectomy: Yes Oral Surgery: Yes (WISDOM TEETH EXTRACTION) Pacemaker: No Thoracic Surgery: No Other Surgery: Yes (CYST UNDER CHIN LANCED) Family History Family Myocardial Infarction: No Social History Alcohol Use: No Tobacco Use: No (never) Substance Use: No Allergies-Medications (Allergen,Severity, Reaction): Coded Allergies: Sulfa (Sulfonamide Antibiotics) (Unverified Allergy, Intermediate, Nausea/ Vomiting, 08/20/17) benazepril (Unverified Allergy, Intermediate, 08/20/17) captopril (Unverified Allergy, Intermediate, 08/20/17) enalaprilat (Unverified Allergy, Intermediate, 08/20/17) fosinopril (Unverified Allergy, Intermediate, 08/20/17) lisinopril (Unverified Allergy, Intermediate, 08/20/17) quinapril (Unverified Allergy, Intermediate, 08/20/17) aspirin (Unverified Adverse Reaction, Intermediate, INDIGESTION, 08/20/17) codeine (Unverified Adverse Reaction, Intermediate, INDIGESTION, 08/20/17) Reported Meds & Prescriptions Reported Meds & Active Scripts Active Chlorthalidone 25 Mg Tab 25 Mg PO DAILY Ventolin Hfa 18 GM Inh (Albuterol Sulfate) 90 Mcg/Act Aer 2 Puff INH Q4-6H PRN Potassium Chloride Microencaps 10 Meq Tab 20 Meq PO DAILY Vitamin D3 (Cholecalciferol) 5,000 Unit Cap 5,000 Units PO DAILY Omeprazole 40 Mg Cap 40 Mg PO DAILY Flonase Nasal Vale (Fluticasone Nasal Vale) 50 Mcg/Act Vale 50 Mcg EACH NARE BID Orapred Odt (Prednisolone Odt) 15 Mg Tab 15 Mg SL BID 5 Days Atorvastatin (Atorvastatin Calcium) 80 Mg Tab 80 Mg PO HS Phenytoin Extended 300 Mg Cap 300 Mg PO DAILY Take 300mg on odd days and 400mg on even days Albuterol Neb (Albuterol Sulfate) 2.5 Mg/3 Ml Neb 2.5 Mg NEB Q4HR NEB While awake Metoprolol Tartrate 25 Mg Tab 25 Mg PO BID Reported Phenobarbital 100 Mg Tab 100 Mg PO TID Hydroxychloroquine (Hydroxychloroquine Sulfate) 200 Mg Tab 200 Mg PO BID Takw with food Prednisone 2.5 Mg Tab 2.5 Mg PO DAILY Review of Systems Except as stated in HPI: all other systems reviewed are Neg General / Constitutional: No: Fever, Chills Eyes: No: Blurred Vision HENT: Positive: Headaches, No: Vertigo, Neck Pain Cardiovascular: No: Chest Pain or Discomfort, Palpitations Respiratory: No: Cough, Shortness of Breath Gastrointestinal: No: Nausea, Vomiting, Abdominal Pain Genitourinary: No: Dysuria, Incontinence Musculoskeletal: Positive: Pain (right hip right thigh right knee right tib-fib ), No: Weakness Neurologic: Positive: Syncope, Headache (mild), No: Weakness, Dizziness, Change in Mentation, Slurred Speech, Incontinence Physical Exam Narrative GENERAL: Well developed well-nourished female in no acute respiratory distress. SKIN: Focused skin assessment warm/dry. HEAD: Atraumatic. Normocephalic. EYES: Extraocular muscles intact No scleral icterus. No injection or drainage. ENT: No nasal bleeding or discharge. Mucous membranes pink and moist. NECK: Trachea midline. No JVD. Supple. CARDIOVASCULAR: Regular rate and rhythm. No murmur appreciated. RESPIRATORY: No accessory muscle use. Clear to auscultation. Breath sounds equal bilaterally. GASTROINTESTINAL: Abdomen soft, obese, non-tender, nondistended. MUSCULOSKELETAL: No obvious deformities. Subjective tenderness in her left upper femur, thigh, knee, tib-fib. NEUROLOGICAL: Awake and alert. No obvious cranial nerve deficits. Motor grossly within normal limits. Normal speech. PSYCHIATRIC: Appropriate mood and affect; insight and judgment normal. Data Data Last Documented VS Vital Signs Date Time Temp Pulse Resp B/P (MAP) Pulse Ox O2 Delivery O2 Flow Rate FiO2 08/26/17 21:08 58 18 144/59 (87) 99 Room Air 08/26/17 16:[address] Brain W/O Iv Contrast(Rout) (08/26/17 19:59) Femur (Ap & Lat/2vws) (08/26/17 19:59) Knee, Ltd (1 Or 2vws) (08/26/17 19:59) Tibia/Fibula (Ap/Lat) (08/26/17 19:59) Electrocardiogram (08/26/17 19:59) Complete Blood Count With Diff (08/26/17 19:59) Comprehensive Metabolic Panel (08/26/17 19:59) Iv Access Insert/Monitor (08/26/17 19:59) Ecg Monitoring (08/26/17 19:59) Oximetry (08/26/17 19:59) Sodium Chlorid 0.9% 500 Ml Inj (Ns 500 M (08/26/17 20:00) Metoprolol Tartrate Inj (Lopressor Inj) (08/26/17 20:00) Phenobarbital (08/26/17 20:04) Phenytoin (Dilantin) (08/26/17 20:04) Potassium Chloride (Kcl) (08/26/17 21:30) Labs Laboratory Tests Test 08/26/17 20:10 White Blood Count 7.6 TH/MM3 Red Blood Count 4.50 MIL/MM3 Hemoglobin 12.4 GM/DL Hematocrit 37.2 % Mean Corpuscular Volume 82.6 FL Mean Corpuscular Hemoglobin 27.6 PG Mean Corpuscular Hemoglobin Concent 33.4 % Red Cell Distribution Width 14.3 % Platelet Count 193 TH/MM3 Mean Platelet Volume 9.1 FL Neutrophils (%) (Auto) 69.1 % Lymphocytes (%) (Auto) 23.6 % Monocytes (%) (Auto) 5.7 % Eosinophils (%) (Auto) 1.4 % Basophils (%) (Auto) 0.2 % Neutrophils # (Auto) 5.2 TH/MM3 Lymphocytes # (Auto) 1.8 TH/MM3 Monocytes # (Auto) 0.4 TH/MM3 Eosinophils # (Auto) 0.1 TH/MM3 Basophils # (Auto) 0.0 TH/MM3 CBC Comment DIFF FINAL Differential Comment Blood Urea Nitrogen 11 MG/DL Creatinine 0.87 MG/DL Random Glucose 87 MG/DL Total Protein 8.5 GM/DL Albumin 4.3 GM/DL Calcium Level 9.6 MG/DL Alkaline Phosphatase 46 U/L Aspartate Amino Transf (AST/SGOT) 13 U/L Alanine Aminotransferase (ALT/SGPT) 18 U/L Total Bilirubin 0.2 MG/DL Sodium Level 135 MEQ/L Potassium Level 3.3 MEQ/L Chloride Level 96 MEQ/L Carbon Dioxide Level 29.6 MEQ/L Anion Gap 9 MEQ/L Estimat Glomerular Filtration Rate 81 ML/MIN Phenytoin (Dilantin) Level 10.6 MCG/ML Phenobarbital Level 26.4 MCG/ML [facility] Medical Decision Making Medical Screen Exam Complete: Yes Emergency Medical Condition: Yes Differential Diagnosis Syncope versus seizure versus right lower extremity fracture versus dehydration Narrative Course 57-year-old female presents today with complaints of syncopal episode. The patient also has history of seizure disorder. I do not believe this was a seizure. The patient was in a hot kitchen cooking when she became lightheaded and passed out. There was no reported seizure activity. There is no reported incontinence. The patient is been given 500 cc of normal saline. She'll be discharged told to drink plenty of fluids and to increase her potassium rich foods. Her potassium level was 3.3. Diagnosis Primary Impression: Episode of syncope Additional Impressions: History of seizure disorder mild hypokalemia Additional Instructions: Increase her potassium rich foods, green leafy vegetables, citrus, banana. Drink plenty of fluids. Return if feeling worse or any other reason. Disposition: 01 DISCHARGE HOME Condition: Stable Neeraj Jones MD Aug 26, 2017 20:04
--- NOTE | 2017-08-26 20:38 | RADRPT ---
EXAM DATE/TIME: 08/26/2017 20:21 [facility] COMPARISON: No previous studies available for comparison. INDICATIONS : Right leg pain after falling today. MEDICAL HISTORY : None. SURGICAL HISTORY : None. ENCOUNTER: Initial ACUITY: 1 day PAIN SCORE: 10/10 LOCATION: Right leg. FINDINGS: Two view examination of the right femur demonstrates no evidence of fracture or dislocation. Bony mi neralization is normal. The soft tissue structures are intact. CONCLUSION: Unremarkable examination of the right femur. Kashif Angela MD on August 26, 2017 at 20:37 Board Certified Radiologist. This report was verified electronically.
--- NOTE | 2017-08-26 20:38 | RADRPT ---
EXAM DATE/TIME: 08/26/2017 20:21 [facility] COMPARISON: No previous studies available for comparison. INDICATIONS : Right knee pain after falling today. MEDICAL HISTORY : None. SURGICAL HISTORY : None. ENCOUNTER: Initial ACUITY: 1 day PAIN SCORE: 10/10 LOCATION: Right knee. FINDINGS: Two view examination of the right knee demonstrates no evidence of fracture or dislocation. Bony min eralization is normal. The suprapatellar soft tissues have a normal configuration. CONCLUSION: No acute bony injury Kashif Angela MD on August 26, 2017 at 20:36 Board Certified Radiologist. This report was verified electronically.
--- NOTE | 2017-08-26 20:39 | RADRPT ---
EXAM DATE/TIME: 08/26/2017 20:25 [facility] COMPARISON: No previous studies available for comparison. INDICATIONS : Right lower leg pain after falling today. MEDICAL HISTORY : None. SURGICAL HISTORY : None. ENCOUNTER: Initial ACUITY: 1 day PAIN SCORE: 10/10 LOCATION: Right lower leg. FINDINGS: Two view examination of the right tibia demonstrates no evidence of fracture or dislocation. Bony mi neralization is normal. The soft tissue structures are intact. CONCLUSION: Unremarkable examination of the right tibia. Kashif Angela MD on August 26, 2017 at 20:37 Board Certified Radiologist. This report was verified electronically.
--- NOTE | 2017-08-26 20:47 | RADRPT ---
EXAM DATE/TIME: 08/26/2017 20:36 [facility] COMPARISON: CT BRAIN W/O CONTRAST, June 10, 2016, 23:02. INDICATIONS : Possible seizure. RADIATION DOSE: 45.92 CTDIvol (mGy) MEDICAL HISTORY : Hypertension. Seizures. Epilepsy. SURGICAL HISTORY : None. ENCOUNTER: Initial ACUITY: 1 day PAIN SCALE: 0/10 LOCATION: cranial TECHNIQUE: Multiple contiguous axial images were obtained of the head. Using automated exposure control and adj ustment of the mA and/or kV according to patient size, radiation dose was kept as low as reasonably a chievable to obtain optimal diagnostic quality images. DICOM format image data is available electro nically for review and comparison. FINDINGS: CEREBRUM: The ventricles are normal for age. No evidence of midline shift, mass lesion, hemorrhage or acute in farction. No extra-axial fluid collections are seen. POSTERIOR FOSSA: The cerebellum and brainstem are intact. The 4th ventricle is midline. The cerebellopontine angle i s unremarkable. EXTRACRANIAL: The visualized portion of the orbits is intact. SKULL: The calvaria is intact. No evidence of skull fracture. CONCLUSION: Normal examination. No significant change has occurred. Kashif Angela MD on August 26, 2017 at 20:45 Board Certified Radiologist. This report was verified electronically.
[2017-08-26 20:50] VITALS: BP 150/69; PULSE 61; RESP 18; O2SAT 98
[2017-08-26 20:56] VITALS: BP 152/69; PULSE 56; RESP 20; O2SAT 98
[2017-08-26 20:56] LABS: AUTOMATED NEUTROPHIL # 5.2 TH/MM3 (1.8-7.7); BASOPHIL % 0.2 % (0.0-2.0); EOSINOPHIL # 0.1 TH/MM3 (0-0.4); EOSINOPHIL % 1.4 % (0.0-4.0); HEMATOCRIT 37.2 % (35.0-46.0); HEMO FLAGS DIFF FINAL; LYMPH % 23.6 % (9.0-44.0); LYMPHOCYTE # 1.8 TH/MM3 (1.0-4.8); MEAN CELL VOLUME 82.6 FL (80.0-100.0); MEAN CORPUSCULAR HEMOGLOBIN 27.6 PG (27.0-34.0); MEAN CORPUSCULAR HGB CONC 33.4 % (32.0-36.0); MONO % 5.7 % (0.0-8.0); NEUT % 69.1 % (16.0-70.0); PLATELET COUNT 193 TH/MM3 (150-450); RED CELL DISTRIBUTION WIDTH 14.3 % (11.6-17.2); WHITE BLOOD COUNT 7.6 TH/MM3 (4.0-11.0)
[2017-08-26 21:08] VITALS: BP 144/59; PULSE 58; RESP 18; O2SAT 99
[2017-08-26 21:08] LABS: ANION GAP 9 MEQ/L (5-15); AST (GOT) 13 U/L (15-37); BICARBONATE 29.6 MEQ/L (21.0-32.0); BLOOD UREA NITROGEN 11 MG/DL (7-18); CHLORIDE 96 MEQ/L (98-107); GLOMERULAR FILTRATION RATE 81 ML/MIN (>89); POTASSIUM 3.3 MEQ/L (3.5-5.1); SODIUM (NA) 135 MEQ/L (136-145)
[2017-08-26 21:09] LABS: ALT (GPT) 18 U/L (10-53)
[2017-08-26 21:10] LABS: PHENOBARBITAL 26.4 MCG/ML (15.0-40.0)
[2017-08-26 21:12] LABS: ALKALINE PHOSPHATASE 46 U/L (45-117); TOTAL BILIRUBIN ADULT 0.2 MG/DL (0.2-1.0)
[2017-08-26] MEDS ORDERED: POTASSIUM CHLORIDE 20 MEQ CONTROLLED RELEASE TAB PO ONE (21:30)
--- NOTE | 2017-08-28 07:35 | EKG ---
Date Performed: 08/26/2017 Time Performed: 21:04:35 PTAGE: 57 years EKG: SINUS BRADYCARDIA NONSPECIFIC T-WAVE ABNORMALITY BORDERLINE ECG Compared to PREVIOUS TRACING , the T-waves are flatter. PREVIOUS TRACIN06/10/2016 23.11 DOCTOR: Driss Oliva Interpretating Date/Time 08/28/2017 07:33:53
== END 2017-08-26 23:12 | disposition home or self-care (01) ==
LOC: NEPE 16:42
DX: R55 Syncope and collapse (principal); G40.909 Epilepsy, unspecified, not intractable, without status epilepticus; E87.6 Hypokalemia; R94.31 Abnormal electrocardiogram [ECG] [EKG]
CPT/HCPCS: 70450; 73552; 73560; 73590; 80053; 80184; 80185; 85025; 93005; 96360; 99285; J7040